=== PATIENT | female | born 1980 | race American Indian/Alaskan Native ===

== ENCOUNTER 2021-06-07 23:26 | Emergency (ER) | payer MEDICARE, MEDICAID ==
[2021-06-08 02:04] VITALS: BP 109/73
[2021-06-08 03:44] LABS: Basophils # (Auto) 0.1 K/mm3 (0.0-0.1); Basophils % (Auto) 1.2 % (0.0-1.8); Eosinophils # (Auto) 0.1 K/mm3 (0.0-0.4); Eosinophils % (Auto) 1.5 % (0.0-4.3); Hematocrit 39.3 % (30.3-42.9); Hemoglobin 12.8 gm/dl (10.1-14.3); Lymphocytes # (Auto) 1.2 K/mm3 (1.2-5.4); Lymphocytes % (Auto) 28.2 % (13.4-35.0); Mean Corpuscular HGB Conc 33 % (30-34); Mean Corpuscular Volume 97 fl (79-97); Monocytes # (Auto) 0.6 K/mm3 (0.0-0.8); Monocytes % (Auto) 14.8 % (0.0-7.3); Platelet Count 250 K/mm3 (140-440); Red Blood Count 4.06 M/mm3 (3.65-5.03)
--- NOTE | 2021-06-08 03:53 | Emergency Department Report ---
<ISAIAH BERMUDEZ - Last Filed: 06/08/21 06:22> ED Abdominal Pain HPI - General Chief Complaint: Abdominal Pain Stated Complaint: PANCREAS ISSUES,SOB,CHEST PAIN,DIZZINESS Time Seen by Provider: 06/08/21 03:27 - Related Data Previous Rx's Medication Instructions Recorded Last Taken Type HYDROcodone/APAP 5-325 [[place] 1 each PO Q6HR PRN 3 Days #8 tablet 06/08/21 Unknown Rx 5/325] Ondansetron [Zofran Odt] 4 mg PO Q8HR PRN 3 Days #12 06/08/21 Unknown Rx tab.rapdis Allergies Allergy/AdvReac Type Severity Reaction Status Date / Time erythromycin base Allergy Anaphylaxis Verified 06/08/21 01:55 ED Past Medical Hx - Medications Home Medications: Home Medications Medication Instructions Recorded Confirmed Last Taken Type HYDROcodone/APAP 5-325 [[place] 1 each PO Q6HR PRN 3 Days #8 tablet 06/08/21 Unknown Rx 5/325] Ondansetron [Zofran Odt] 4 mg PO Q8HR PRN 3 Days #12 06/08/21 Unknown Rx tab.rapdis ED Course - Reevaluation(s) Reevaluation #1: 06/08/21 06:22 I excepted patient is a signout from Dr. [place]. Patient was awaiting CT imaging of the abdomen and pelvis. Patient has history of pancreatitis. Patient had normal labs including normal lipase. Patient CT scan was reviewed which noted possible enteritis, constipation and an appendix not well visualized. Patient's pain is mid abdomen. Patient is given strict return precautions, given the likely diagnosis of acute gastroenteritis, given prescriptions for pain control as well as nausea. Patient is instructed to return to emergency department if symptoms worsen. Patient is instructed to follow-up with primary care doctor as well as [employer] HELPER for incidental noting of a 2 cm left ovarian cyst. ED Medical Decision Making - Lab Data Result diagrams: 06/08/21 03:21 06/08/21 03:21 ED Disposition Clinical Impression: Gastroenteritis, Ovarian cyst Disposition: 01 HOME / SELF CARE / HOMELESS Is pt being admited?: No Does the pt Need Aspirin: No Condition: Stable Instructions: Viral Gastroenteritis, Adult, [id number], Ovarian Cyst, [id number], Abdominal Pain (ED) Additional Instructions: Please stay hydrated. If your symptoms worsen or if you develop fevers or right lower quadrant abdominal pain, please return to the emergency department for f urther evaluation. 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 Patient presented to the ER complaining of epigastric abdominal pain, sharp in nature with radiation to the back. Patient also stated that she has been having some nausea and vomiting. Patient stated that her symptoms been going on for few days now. Patient denied any fever or chills. No chest pain or shortness of breath. MD Complaint: abdominal pain -: days(s) Location: epigastric Radiation: back Severity scale (0 -10): 3 Quality: sharp Associated Symptoms: nausea, vomiting ED Review of Systems ROS: Stated complaint: PANCREAS ISSUES,SOB,CHEST PAIN,DIZZINESS Other details as noted in HPI Comment: All other systems reviewed and negative Constitutional: denies: chills, fever Respiratory: denies: cough, shortness of breath, SOB with exertion, SOB at rest, wheezing Cardiovascular: denies: chest pain, palpitations Gastrointestinal: abdominal pain, nausea, vomiting Musculoskeletal: denies: back pain ED Past Medical Hx - Past Medical History Previous Medical History?: Yes Hx Hypertension: Yes Additional medical history: Pancreatitis, Gastric Bypass, Endometreal ablasion, kidney stones - Surgical History Past Surgical History?: Yes Additional Surgical History: Gastric bypass ED Physical Exam - General Limitations: No Limitations General appearance: alert, in no apparent distress - Head Head exam: Present: atraumatic, normocephalic, normal inspection - Eye Eye exam: Present: normal appearance, PERRL - ENT ENT exam: Present: normal exam, normal orophraynx, mucous membranes moist - Neck Neck exam: Present: normal inspection, full ROM. Absent: tenderness, meningismus - Respiratory Respiratory exam: Present: normal lung sounds bilaterally - Cardiovascular Cardiovascular Exam: Present: regular rate, normal rhythm, normal heart sounds - GI/Abdominal GI/Abdominal exam: Present: soft, normal bowel sounds. Absent: distended, tenderness, guarding, rebound, rigid, mass, bruit, pulsatile mass, hernia - Extremities Exam Extremities exam: Present: normal inspection, full ROM, normal capillary refill. Absent: tenderness - Back Exam Back exam: Present: normal inspection, full ROM. Absent: CVA tenderness (R), CVA tenderness (L) - Neurological Exam Neurological exam: Present: alert, oriented X3, CN II-XII intact, normal gait, reflexes normal. Absent: motor sensory deficit - Psychiatric Psychiatric exam: Present: normal mood - Skin Skin exam: Present: warm, intact, normal color ED Course Vital Signs 06/08/21 06/08/21 01:49 06:42 Temperature 98.7 F Pulse Rate 102 H 79 Respiratory 18 17 Rate Blood Pressure 109/73 109/73 [Right] O2 Sat by Pulse 100 100 Oximetry ED Medical Decision Making - Lab Data Result diagrams: 06/08/21 03:21 06/08/21 03:21 Critical care attestation.: If time is entered above; I have spent that time in minutes in the direct care of this critically ill patient, excluding procedure time.
[2021-06-08 04:09] LABS: Alanine Aminotransferase 10 units/L (7-56); Albumin 4.5 g/dL (3.9-5); BUN/Creatinine Ratio 10; Blood Urea Nitrogen 8 mg/dL (7-17); Calcium 9.3 mg/dL (8.4-10.2); Hemolysis Index 3
--- NOTE | 2021-06-08 06:00 | Cat Scan Report ---
CT ABDOMEN AND PELVIS WITH IV CONTRAST INDICATION: Pt complains of abdominal pain. COMPARISON: None available. TECHNIQUE: All CT scans at this facility use dose modulation, automated exposure control, iterative reconstructi on or weight based dosing, when appropriate, to reduce radiation dose to as low as reasonably achieva ble. FINDINGS: Lung Bases: No significant abnormality. Skeletal System: No acute abnormality. ABDOMEN: Liver: No significant abnormality. Gallbladder: Contracted. Bile Ducts: No significant abnormality. Adrenals: No significant abnormality. Right Kidney: No significant abnormality. Left Kidney: No significant abnormality. Pancreas: No significant abnormality. Spleen: No significant abnormality. Upper GI tract: Gastric bypass changes. There is mild mural enhancement within the small bowel. Dista l small bowel is fluid-filled. There is no significant small bowel dilatation. Lymph Nodes: No significant adenopathy. Aorta: No significant abnormality. Additional Findings: No significant abnormality. PELVIS: Colon: No acute abnormality. Constipation is noted. Urinary Bladder and Distal Ureters: No significant abnormality. Appendix: Not visualized. Lymph Nodes: No significant adenopathy. Additional Findings: There is a 2 cm left ovarian cyst. IMPRESSION: 1. Probable enteritis. 2. Constipation. 3. The appendix is not visualized. Signer Name: Hernando Bernstein MD Signed: 06/08/2021 5:56 AM Workstation Name: [id number]
[2021-06-08 06:24] LABS: Bilirubin,Urine NEG (Negative); Blood,Urine MOD (Negative); Color,Urine Yellow (Yellow); Mucus,Urine 3+ /HPF
== END 2021-06-08 06:42 | disposition home or self-care (01) ==
LOC: ED 23:26
DX: K52.9 Noninfective gastroenteritis and colitis, unspecified (principal); N83.209 Unspecified ovarian cyst, unspecified side; I10 Essential (primary) hypertension; Z98.890 Other specified postprocedural states; Z91.09 Other allergy status, other than to drugs and biological substances
CPT/HCPCS: 36415; 74177; 80053; 81001; 83690; 84703; 85025; 99284; Q9967